=== PATIENT | male | born 1965 | race Hispanic/Latino ===

== ENCOUNTER 2022-06-02 14:39 | Emergency (ER) | payer BC ==
[2022-06-02] MEDS ORDERED: CEFAZOLIN 2 GM VIAL ONE (15:52)
[2022-06-02] MEDS ORDERED: Ondansetron PF 4 MG/2 ML Vial ONE (15:52)
[2022-06-02] MEDS ORDERED: Fentanyl 100 MCG/2 ML VIAL ONE (15:52)
[2022-06-02] MEDS ORDERED: Lidocaine 1% PF 5 ML VIAL ONE (16:16)
[2022-06-02] MEDS ORDERED: Bupivacaine 0.25% 10 ML VIAL SC SCH (16:30)
== END 2022-06-02 21:07 | disposition short-term general hospital (02) ==
LOC: ERS 14:39
DX: S62.633B Displaced fracture of distal phalanx of left middle finger, initial encounter for open fracture (principal); W23.0XXA Caught, crushed, jammed, or pinched between moving objects, initial encounter
CPT/HCPCS: 64450; 96374; 96375; J0690; J2405; J3010; S0020